=== PATIENT | male | born 1985 | race African-American/Black ===

== ENCOUNTER 2020-12-28 03:58 | Emergency (ER) | payer OTHER ==
[~2020-12-28] VITALS: Ht 180.3 cm; Wt 59.4 kg
[2020-12-28 06:11] VITALS: BP 123/76
== END 2020-12-28 06:17 | disposition home or self-care (01) ==
LOC: ER 03:58
DX: R10.84 Generalized abdominal pain (principal); Z76.89 Persons encountering health services in other specified circumstances; Z91.040 Latex allergy status